=== PATIENT | female | born 1950 | race Caucasian/White ===

== ENCOUNTER 2016-08-08 20:09 | Emergency (ER) | payer BC ==
[~2016-08-08] VITALS: Ht 175.3 cm; Wt 98.0 kg
[~2016-08-08 20:09] MED LIST: CARVEDILOL6.25 MG PO; COZAAR 50 MG TA50 M2 PO; DOXYCYCLINE 10100 MG PO; GLUCOPHAGE1000 MG PO; GLYBURIDE 5 MG T5 MG PO; HYDROCODONE-AP1 EAC6 PO; IBUPROFEN 600600 M1 PO; LISINOPRIL5 MG PO; LORTAB 5 MG/5001 TA1 PO; METFORMIN HCL500 MG PO; MINIPRIN81 MG PO; NOHOMEMEDICATIONS; NORCO 5-325 TA1 EACH PO; PREDNISONE50 MG PO; PROAIR HFA8.5 GM IH; SILVADENE20 GM TP; TYLENOL325 MG PO; ZOCOR20 MG PO
[2016-08-08 21:32] LABS: ABSOLUTE NEUTROPHILS 3.8 thou/uL (1.4-8.2); BASOPHILS 0.7 % (0.0-2.0); EOSINOPHILS 0.7 % (0.0-3.0); HEMOGLOBIN 13.2 gm/dL (12.0-15.0); LYMPHOCYTES 21.5 % (24.0-44.0); MCH 32.3 pg (26.0-34.0); MCHC 35.7 g/dL (28.0-37.0); MCV 90.5 fL (80.0-100.0); MONOCYTES 9.7 % (1.0-8.0); PLATELET COUNT 156 thou/uL (150-400); POLYS 67.4 % (36.0-66.0); RBC 4.09 mil/uL (4.20-5.00); RDW 13.1 % (10.5-14.5); WBC 5.6 thou/uL (4.0-11.0)
[2016-08-08 21:34] LABS: MANUAL DIFF NO
[2016-08-08 21:40] LABS: CALCIUM 8.3 mg/dL (8.5-10.1); CREATININE 0.8 mg/dL (0.6-1.0)
[2016-08-08 21:46] LABS: ALBUMIN 3.2 g/dL (3.4-5.0); TOTAL PROTEIN 6.7 g/dL (6.4-8.2)
[2016-08-08 23:38] VITALS: BP 124/66
== END 2016-08-08 23:40 | disposition home or self-care (01) ==
LOC: ER 20:09
PROVIDERS: Emergency Medicine
DX: R19.7 Diarrhea, unspecified (principal); R10.32 Left lower quadrant pain; E11.9 Type 2 diabetes mellitus without complications; E78.00 Pure hypercholesterolemia, unspecified; Z90.710 Acquired absence of both cervix and uterus; Z90.722 Acquired absence of ovaries, bilateral; Z90.89 Acquired absence of other organs; I25.2 Old myocardial infarction; G47.30 Sleep apnea, unspecified; I10 Essential (primary) hypertension; I42.9 Cardiomyopathy, unspecified; Z88.1 Allergy status to other antibiotic agents; Z88.5 Allergy status to narcotic agent

== ENCOUNTER → 2016-09-02 | Outpatient (CLI) | payer OTHER | LOC: LABMALL 08:15 | DX: R19.7 Diarrhea, unspecified (principal) ==

== ENCOUNTER → 2016-09-17 | Outpatient (CLI) | payer OTHER | LOC: LABMALL 10:45 | DX: J02.9 Acute pharyngitis, unspecified (principal) ==

== ENCOUNTER 2017-06-21 07:31 | Inpatient (IN) | payer OTHER ==
[~2017-06-21] VITALS: Ht 175.3 cm; Wt 99.3 kg
[2017-06-21 07:37] VITALS: BP 211/95
[2017-06-21 08:01] LABS: URINE BILIRUBIN NEGATIVE (Negative); URINE BLOOD TRACE (Negative); URINE CLARITY CLOUDY; URINE COLOR YELLOW; URINE GLUCOSE-RANDOM* 3+ (Negative); URINE KETONES NEGATIVE (Negative); URINE PROTEIN (DIPSTICK) TRACE (Negative); URINE SPECIFIC GRAVITY 1.015 (1.005-1.035); URINE UROBILINOGEN 0.2 E.U./dl (0.2-1.0)
[2017-06-21 08:02] LABS: URINE LEUKOCYTES-REFLEX TRACE (Negative); URINE NITRITE-REFLEX POSITIVE (Negative)
[2017-06-21 08:12] LABS: ABSOLUTE NEUTROPHILS 4.5 thou/uL (1.4-8.2); BASOPHILS 1.1 % (0.0-2.0); EOSINOPHILS 1.5 % (0.0-3.0); HEMATOCRIT 41.2 % (37.0-47.0); HEMOGLOBIN 14.4 gm/dL (12.0-15.0); LYMPHOCYTES 21.3 % (24.0-44.0); MCH 32.4 pg (26.0-34.0); MCV 92.6 fL (80.0-100.0); MONOCYTES 7.6 % (1.0-8.0); PLATELET COUNT 176 thou/uL (150-400); POLYS 68.5 % (36.0-66.0); RBC 4.45 mil/uL (4.20-5.00); RDW 13.1 % (10.5-14.5); WBC 6.6 thou/uL (4.0-11.0)
[2017-06-21 08:15] LABS: CALCIUM 9.6 mg/dL (8.5-10.1); POTASSIUM 4.6 mmol/L (3.5-5.1)
[2017-06-21 08:36] LABS: BACTERIA-REFLEX >30 Many /HPF (None Seen); CASTS None Seen /LPF (None Seen); CRYSTALS None Seen /LPF (None Seen); SQUAMOUS 4-10 Moderate /LPF (0-3); URINE WBC-REFLEX >25 Many /HPF (0-5)
[2017-06-21 08:37] LABS: URINE RBC 0-2 Rare /HPF (0-2)
[2017-06-21 12:07] VITALS: BP 136/63
[2017-06-21 13:02] VITALS: BP 134/66
[2017-06-21 13:15] VITALS: BP 194/93
[2017-06-21 15:45] VITALS: BP 159/79
[2017-06-21 20:30] VITALS: BP 125/68
[2017-06-22 00:18] VITALS: BP 128/69
[2017-06-22 03:10] LABS: GLYCOHEMOGLOBIN (HGB A1C) 9.5 % (4.8-5.6)
[2017-06-22 03:16] VITALS: BP 141/61
[2017-06-22 04:29] LABS: CALCIUM 8.5 mg/dL (8.5-10.1); CREATININE 1.1 mg/dL (0.6-1.0); POTASSIUM 4.2 mmol/L (3.5-5.1)
[2017-06-22 05:26] LABS: HEMATOCRIT 35.7 % (37.0-47.0); MCH 32.3 pg (26.0-34.0); MCHC 34.6 g/dL (28.0-37.0); MCV 93.3 fL (80.0-100.0); RBC 3.83 mil/uL (4.20-5.00); RDW 13.3 % (10.5-14.5); WBC 4.8 thou/uL (4.0-11.0)
[2017-06-22 05:32] LABS: HEMOGLOBIN 12.4 gm/dL (12.0-15.0)
[2017-06-22 08:29] VITALS: BP 154/78
[2017-06-22] MEDS ORDERED: ACETAMINOPHEN325 M1 PO (12:15)
[2017-06-22] MEDS ORDERED: GLIMEPIRIDE1 MG PO (12:15)
[2017-06-22] MEDS ORDERED: HYDROCODONE-AP1 EAC6 PO (12:15)
[2017-06-22] MEDS ORDERED: LISINOPRIL10 MG PO (12:27)
[2017-06-22] MEDS ORDERED: BACTRIM DS TAB1 EACH PO (12:38)
[2017-06-22 13:28] VITALS: BP 154/78
[2017-07-25] MEDS ORDERED: KEFLEX500 M1 PO (09:41)
[2017-07-25] MEDS ORDERED: VANCOMYCIN125 MG/2.1 PO (09:41)
== END 2017-06-22 14:50 | disposition home or self-care (01) | DRG 552 ==
LOC: ER 07:31 → 4S 10:10 → EROBS 10:10 → 4S 13:20
PROVIDERS: Emergency Medicine; Hospitalist
DX: M46.1 Sacroiliitis, not elsewhere classified (principal); N39.0 Urinary tract infection, site not specified; I42.9 Cardiomyopathy, unspecified; E11.65 Type 2 diabetes mellitus with hyperglycemia; I10 Essential (primary) hypertension; E66.9 Obesity, unspecified; G89.29 Other chronic pain; E78.00 Pure hypercholesterolemia, unspecified; M54.9 Dorsalgia, unspecified; Z91.14 Patient's other noncompliance with medication regimen; Z88.6 Allergy status to analgesic agent; Z88.1 Allergy status to other antibiotic agents; Z88.8 Allergy status to other drugs, medicaments and biological substances; Z90.710 Acquired absence of both cervix and uterus; Z68.32 Body mass index [BMI] 32.0-32.9, adult; Z90.721 Acquired absence of ovaries, unilateral; I25.2 Old myocardial infarction
CPT/HCPCS: 10100

== ENCOUNTER 2017-06-28 05:48 | Emergency (ER) | payer OTHER ==
[~2017-06-28] VITALS: Ht 175.3 cm; Wt 99.8 kg
[~2017-06-28 05:48] MED LIST changes: +ACETAMINOPHEN325 M1 PO; +BACTRIM DS TAB1 EACH PO; +GLIMEPIRIDE1 MG PO; +LISINOPRIL10 MG PO
[2017-06-28 06:16] LABS: ABSOLUTE NEUTROPHILS 3.7 thou/uL (1.4-8.2); BASOPHILS 0.8 % (0.0-2.0); CALCIUM 8.7 mg/dL (8.5-10.1); CREATININE 0.8 mg/dL (0.6-1.0); EOSINOPHILS 1.2 % (0.0-3.0); HEMATOCRIT 36.6 % (37.0-47.0); LYMPHOCYTES 25.2 % (24.0-44.0); MCH 32.3 pg (26.0-34.0); MCHC 35.4 g/dL (28.0-37.0); MCV 91.4 fL (80.0-100.0); MONOCYTES 9.2 % (1.0-8.0); PLATELET COUNT 165 thou/uL (150-400); POLYS 63.6 % (36.0-66.0); POTASSIUM 4.6 mmol/L (3.5-5.1); RBC 4.01 mil/uL (4.20-5.00); RDW 13.2 % (10.5-14.5); WBC 5.8 thou/uL (4.0-11.0)
[2017-06-28 06:21] LABS: ALBUMIN 3.2 g/dL (3.4-5.0); DIRECT BILIRUBIN 0.1 mg/dL (<0.1-0.3); TOTAL BILIRUBIN 0.5 mg/dL (<0.1-1.0); TOTAL PROTEIN 6.9 g/dL (6.4-8.2)
[2017-06-28] MEDS ORDERED: VANCOMYCIN HCL125 MG PO (08:40)
[2017-06-28 09:02] VITALS: BP 164/72
[2017-07-25] MEDS ORDERED: KEFLEX500 M1 PO (09:41)
[2017-07-25] MEDS ORDERED: VANCOMYCIN125 MG/2.1 PO (09:41)
== END 2017-06-28 09:26 | disposition home or self-care (01) ==
LOC: ER 05:48
PROVIDERS: Emergency Medicine
DX: R19.7 Diarrhea, unspecified (principal); R10.9 Unspecified abdominal pain; E11.9 Type 2 diabetes mellitus without complications; E78.00 Pure hypercholesterolemia, unspecified; I10 Essential (primary) hypertension; G47.30 Sleep apnea, unspecified; Z98.890 Other specified postprocedural states; Z90.710 Acquired absence of both cervix and uterus; Z90.49 Acquired absence of other specified parts of digestive tract; Z88.1 Allergy status to other antibiotic agents; Z88.6 Allergy status to analgesic agent; Z88.8 Allergy status to other drugs, medicaments and biological substances

== ENCOUNTER 2017-09-27 09:30 | Emergency (ER) | payer OTHER ==
[~2017-09-27] VITALS: Ht 175.3 cm; Wt 97.1 kg
--- NOTE | ~2017-09-27 | EKG ---
[address] [place] [address] ELECTROCARDIOGRAM REPORT Name: STONE DENNIS Room #: REG [facility]#: [id number] Admission: 09/27/17 Attend Phys: Discharge: Date of : 52 Report #: [id number] THIS REPORT FOR: //name// [facility] ED Test Date: 2017-09-27 Test Time: 09:42:37 Pat Name: STONE DENNIS Department: Room: Gender: F Still Operator: Bernadine HAMPTON RN : 1950 Requested By: Pablo Ocampo Order Number: [id number] MD: Michelet Billings Measurements Intervals [place] Rate: 65 P: 15 [place]: 150 QRS: -35 QRSD: 112 T: 45 QT: 438 QTc: 456 Interpretive Statements Sinus rhythm Borderline IVCD Compared to ECG 09/19/2013 14:25:59 Poor R-wave progression no longer present Left-axis deviation no longer present Electronically Signed On 09-27-2017 10:55:29 CDT by Michelet Billings [email or web address] <ELECTRONICALLY SIGNED> By: Michelet Billings MD, [facility] 09/27/17 1055 1 1 Michelet Billings MD, [facility] /EPI
[~2017-09-27 09:30] MED LIST changes: +KEFLEX500 M1 PO; +VANCOMYCIN HCL125 MG PO; +VANCOMYCIN125 MG/2.1 PO
[2017-09-27 10:02] LABS: ABSOLUTE NEUTROPHILS 3.6 thou/uL (1.4-8.2); BASOPHILS 0.9 % (0.0-2.0); MCH 31.8 pg (26.0-34.0)
[2017-09-27 10:04] LABS: LYMPHOCYTES 21.7 % (24.0-44.0); MCHC 34.9 g/dL (28.0-37.0); MCV 90.9 fL (80.0-100.0); MONOCYTES 8.6 % (1.0-8.0); PLATELET COUNT 185 thou/uL (150-400); POLYS 66.8 % (36.0-66.0); RDW 12.9 % (10.5-14.5); WBC 5.3 thou/uL (4.0-11.0)
[2017-09-27 10:05] LABS: ANION GAP 8 mmol/L (7-16); BUN 19 mg/dL (7-18); CALCIUM 9.9 mg/dL (8.5-10.1); CHLORIDE 98 mmol/L (98-107); CO2 25 mmol/L (21-32); GLUCOSE 409 mg/dL (74-106); POTASSIUM 4.3 mmol/L (3.5-5.1); SODIUM 131 mmol/L (136-145)
[2017-09-27] MEDS ORDERED: CYMBALTA30 MG PO (10:06)
[2017-09-27] MEDS ORDERED: BENTYL 10 MG CA10 M1 PO (10:06)
[2017-09-27] MEDS ORDERED: TRAZODONE HCL50 MG PO (10:07)
[2017-09-27 10:14] LABS: ALBUMIN 3.6 g/dL (3.4-5.0); SGOT 23 U/L (15-37); SGPT 30 U/L (30-65); TOTAL BILIRUBIN 0.9 mg/dL (<0.1-1.0); TOTAL PROTEIN 7.6 g/dL (6.4-8.2); TROPONIN-I < 0.04 ng/mL (<0.06)
[2017-09-27 11:00] LABS: URINE BILIRUBIN NEGATIVE (Negative); URINE BLOOD TRACE (Negative); URINE CLARITY CLOUDY; URINE COLOR YELLOW; URINE GLUCOSE-RANDOM* 3+ (Negative); URINE KETONES NEGATIVE (Negative); URINE LEUKOCYTES-REFLEX NEGATIVE (Negative); URINE PROTEIN (DIPSTICK) NEGATIVE (Negative); URINE UROBILINOGEN 0.2 E.U./dl (0.2-1.0)
[2017-09-27 11:01] LABS: URINE NITRITE-REFLEX POSITIVE (Negative)
[2017-09-27 11:09] LABS: SQUAMOUS 0-3 Few /LPF (0-3); URINE RBC 0-2 Rare /HPF (0-2); URINE WBC-REFLEX 6-15 Few /HPF (0-5)
[2017-09-27 11:10] LABS: BACTERIA-REFLEX >30 Many /HPF (None Seen); CASTS None Seen /LPF (None Seen); CRYSTALS None Seen /LPF (None Seen)
[2017-09-27] MEDS ORDERED: FLAGYL 250 MG250 MG PO (11:48)
[2017-09-27] MEDS ORDERED: CEFDINIR300 MG PO (11:48)
[2017-09-27] MEDS ORDERED: XIFAXAN 200 MG200 MG PO (11:52)
[2017-09-27 12:02] VITALS: BP 173/73
== END 2017-09-27 12:02 | disposition home or self-care (01) ==
LOC: ER 09:30
PROVIDERS: Physician Assistant
DX: N39.0 Urinary tract infection, site not specified (principal); E11.65 Type 2 diabetes mellitus with hyperglycemia; R19.7 Diarrhea, unspecified; E78.00 Pure hypercholesterolemia, unspecified; I25.2 Old myocardial infarction; I42.9 Cardiomyopathy, unspecified; I10 Essential (primary) hypertension; Z90.89 Acquired absence of other organs; Z88.1 Allergy status to other antibiotic agents; Z88.5 Allergy status to narcotic agent; Z88.6 Allergy status to analgesic agent

== ENCOUNTER 2017-10-17 17:38 | Emergency (ER) | payer OTHER ==
[~2017-10-17] VITALS: Ht 175.3 cm; Wt 94.8 kg
--- NOTE | ~2017-10-17 | EKG ---
[address] [address] [facility] [employer] [place] [address] ELECTROCARDIOGRAM REPORT Name: STONE DENNIS Room #: [facility] [id number] Admission: 10/17/17 Attend Phys: Discharge: 10/17/17 Date of : 52 Report #: [id number] THIS REPORT FOR: //name// [facility] ED Test Date: 2017-10-17 Test Time: 17:45:24 Pat Name: STONE DENNIS Department: Room: Gender: F Cooker Process Cheese: : 1950 Requested By: Ellen Lawson Order Number: [id number] MD: Michelet Billings Measurements Intervals [place] Rate: 75 P: 5 [place]: 147 QRS: -47 QRSD: 107 T: 43 QT: 412 QTc: 461 Interpretive Statements Sinus rhythm Left axis deviation Abnormal R-wave progression, late transition Compared to ECG 09/27/2017 09:42:37 No significant changes Electronically Signed On 10-18-2017 17:04:14 CDT by Michelet Billings [email or web address] <ELECTRONICALLY SIGNED> By: Michelet Billings MD, [facility] 10/18/17 1704 1745 174 Michelet Billings MD, [facility] /EPI
[~2017-10-17 17:38] MED LIST changes: +BENTYL 10 MG CA10 M1 PO; +CEFDINIR300 MG PO; +CYMBALTA30 MG PO; +FLAGYL 250 MG250 MG PO; +TRAZODONE HCL50 MG PO; +XIFAXAN 200 MG200 MG PO
[2017-10-17 18:00] LABS: ABSOLUTE NEUTROPHILS 3.2 thou/uL (1.4-8.2); BASOPHILS 0.8 % (0.0-2.0); EOSINOPHILS 2.1 % (0.0-3.0); HEMATOCRIT 37.5 % (37.0-47.0); HEMOGLOBIN 13.7 gm/dL (12.0-15.0); LYMPHOCYTES 26.6 % (24.0-44.0); MCH 32.7 pg (26.0-34.0); MCHC 36.6 g/dL (28.0-37.0); MCV 89.2 fL (80.0-100.0); MONOCYTES 6.5 % (1.0-8.0); PLATELET COUNT 176 thou/uL (150-400); RBC 4.21 mil/uL (4.20-5.00); RDW 13.2 % (10.5-14.5)
[2017-10-17 18:14] LABS: ANION GAP 5 mmol/L (7-16); BUN 19 mg/dL (7-18); CALCIUM 9.5 mg/dL (8.5-10.1); CHLORIDE 99 mmol/L (98-107); CO2 28 mmol/L (21-32); GLUCOSE 431 mg/dL (74-106); POTASSIUM 4.2 mmol/L (3.5-5.1); SODIUM 132 mmol/L (136-145)
[2017-10-17 18:22] LABS: TROPONIN-I <0.06 ng/mL (<0.06)
[2017-10-17 18:39] LABS: ANISOCYTOSIS 1+
[2017-10-17 19:32] LABS: ALBUMIN 3.4 g/dL (3.4-5.0); DIRECT BILIRUBIN 0.2 mg/dL (<0.1-0.3); MAGNESIUM 1.9 mg/dL (1.8-2.4); TOTAL BILIRUBIN 0.7 mg/dL (<0.1-1.0); TOTAL PROTEIN 7.3 g/dL (6.4-8.2)
[2017-10-17 19:35] LABS: APTT 24.2 Seconds (24.5-32.8); PROTIME 9.8 Seconds (9.3-11.4)
[2017-10-17 19:37] LABS: URINE BILIRUBIN NEGATIVE (Negative); URINE BLOOD NEGATIVE (Negative); URINE CLARITY CLEAR; URINE COLOR YELLOW; URINE GLUCOSE-RANDOM* 3+ (Negative); URINE KETONES NEGATIVE (Negative); URINE LEUKOCYTES-REFLEX NEGATIVE (Negative); URINE NITRITE-REFLEX NEGATIVE (Negative); URINE PROTEIN (DIPSTICK) NEGATIVE (Negative); URINE UROBILINOGEN 0.2 E.U./dl (0.2-1.0)
[2017-10-17] MEDS ORDERED: ANTIVERT25 MG PO (20:01)
[2017-10-17 20:46] VITALS: BP 180/67
== END 2017-10-17 20:00 | disposition home or self-care (01) ==
LOC: ER 17:38
PROVIDERS: Emergency Medicine
DX: E11.9 Type 2 diabetes mellitus without complications (principal); R23.3 Spontaneous ecchymoses; H93.13 Tinnitus, bilateral; R19.7 Diarrhea, unspecified; E78.00 Pure hypercholesterolemia, unspecified; I25.2 Old myocardial infarction; I10 Essential (primary) hypertension; I42.9 Cardiomyopathy, unspecified; Z90.89 Acquired absence of other organs; Z90.710 Acquired absence of both cervix and uterus; Z90.49 Acquired absence of other specified parts of digestive tract; Z88.1 Allergy status to other antibiotic agents; Z88.6 Allergy status to analgesic agent; Z88.5 Allergy status to narcotic agent

== ENCOUNTER → 2017-11-05 | Outpatient (CLI) | payer OTHER ==
[~2017-11-05] MED LIST changes: +ANTIVERT25 MG PO
== END ==
LOC: NUC 10:29
DX: N91.2 Amenorrhea, unspecified (principal); Z78.0 Asymptomatic menopausal state; Z87.39 Personal history of other diseases of the musculoskeletal system and connective tissue

== ENCOUNTER 2018-03-14 10:09 | Emergency (ER) | payer OTHER ==
[~2018-03-14] VITALS: Ht 172.7 cm; Wt 99.8 kg
--- NOTE | ~2018-03-14 | EKG ---
[address] [place] [address] ELECTROCARDIOGRAM REPORT Name: STONE DENNIS [facility] [id number] Admission: 03/14/18 Attend Phys: Discharge: 03/14/18 Date of : 52 Report #: [id number] THIS REPORT FOR: //name// [facility] ED Test Date: 2018-03-14 Test Time: 10:30:41 Pat Name: STONE DENNIS Department: Room: Gender: F Hospice Bereavement Coordinator: LYN : 1950 Requested By: Pablo Ocampo Order Number: [id number] MD: Michelet Billings Measurements Intervals [place] Rate: 67 P: 37 [place]: 154 QRS: -50 QRSD: 108 T: 74 QT: 438 QTc: 463 Interpretive Statements Sinus rhythm Abnormal R-wave progression, late transition Leftward axis Compared to ECG 10/17/2017 17:45:24 No significant change was found Electronically Signed On 03-15-2018 8:44:12 DENTAL TECHNICIAN APPRENTICE by Michelet Billings [email or web address] <ELECTRONICALLY SIGNED> By: Michelet Billings MD, [facility] 03/15/18 0844 1030 1030 Michelet Billings MD, [facility] /EPI
[2018-03-14] MEDS ORDERED: OZEMPIC0.25 MG/0. SUBQ (10:14)
[2018-03-14] MEDS ORDERED: BACTRIM DS TAB1 EACH PO (10:16)
[2018-03-14 10:38] LABS: ABSOLUTE NEUTROPHILS 3.4 thou/uL (1.4-8.2); BASOPHILS 0.8 % (0.0-2.0); EOSINOPHILS 1.7 % (0.0-3.0); HEMATOCRIT 38.2 % (37.0-47.0); HEMOGLOBIN 13.7 gm/dL (12.0-15.0); LYMPHOCYTES 23.3 % (24.0-44.0); MCH 32.8 pg (26.0-34.0); MCHC 35.9 g/dL (28.0-37.0); MCV 91.3 fL (80.0-100.0); MONOCYTES 9.4 % (1.0-8.0); PLATELET COUNT 142 thou/uL (150-400); POLYS 64.8 % (36.0-66.0); RBC 4.19 mil/uL (4.20-5.00); RDW 13.2 % (10.5-14.5); WBC 5.3 thou/uL (4.0-11.0)
[2018-03-14 10:53] LABS: ANION GAP 7 mmol/L (7-16); BUN 23 mg/dL (7-18); CHLORIDE 97 mmol/L (98-107); CO2 26 mmol/L (21-32); CREATININE 1.1 mg/dL (0.6-1.0); GLUCOSE 350 mg/dL (74-106); POTASSIUM 4.5 mmol/L (3.5-5.1); SODIUM 130 mmol/L (136-145)
[2018-03-14 11:02] LABS: ALBUMIN 3.4 g/dL (3.4-5.0); LIPASE 265 U/L (73-393); SGOT 31 U/L (15-37); SGPT 37 U/L (30-65); TOTAL BILIRUBIN 0.7 mg/dL (<0.1-1.0); TOTAL PROTEIN 7.3 g/dL (6.4-8.2); TROPONIN-I <0.06 ng/mL (<0.06)
[2018-03-14 11:49] LABS: URINE BILIRUBIN NEGATIVE (Negative); URINE BLOOD NEGATIVE (Negative); URINE CLARITY CLEAR; URINE COLOR YELLOW; URINE GLUCOSE-RANDOM* 3+ (Negative); URINE KETONES NEGATIVE (Negative); URINE LEUKOCYTES-REFLEX NEGATIVE (Negative); URINE PROTEIN (DIPSTICK) NEGATIVE (Negative); URINE UROBILINOGEN 0.2 E.U./dl (0.2-1.0)
[2018-03-14 11:57] LABS: URINE NITRITE-REFLEX POSITIVE (Negative)
[2018-03-14 12:34] LABS: BACTERIA-REFLEX >30 Many /HPF (None Seen); CASTS None Seen /LPF (None Seen); CRYSTALS None Seen /LPF (None Seen); SQUAMOUS 0-3 Few /LPF (0-3); URINE RBC None Seen /HPF (0-2)
[2018-03-14 12:35] LABS: URINE WBC-REFLEX 0-5 Rare /HPF (0-5)
[2018-03-14] MEDS ORDERED: ZOFRAN ODT4 MG PO (12:40)
[2018-03-14 13:18] VITALS: BP 147/89
== END 2018-03-14 13:21 | disposition home or self-care (01) ==
LOC: ER 10:09
PROVIDERS: Physician Assistant
DX: R11.2 Nausea with vomiting, unspecified (principal); T38.3X5A Adverse effect of insulin and oral hypoglycemic [antidiabetic] drugs, initial encounter; R10.13 Epigastric pain; R53.1 Weakness; E11.9 Type 2 diabetes mellitus without complications; E78.00 Pure hypercholesterolemia, unspecified; G47.30 Sleep apnea, unspecified; I10 Essential (primary) hypertension; I42.9 Cardiomyopathy, unspecified; Z90.89 Acquired absence of other organs; Z88.1 Allergy status to other antibiotic agents; Z90.710 Acquired absence of both cervix and uterus; Z90.49 Acquired absence of other specified parts of digestive tract; Z88.6 Allergy status to analgesic agent; Z88.5 Allergy status to narcotic agent; Y92.89 Other specified places as the place of occurrence of the external cause

== ENCOUNTER 2018-05-05 14:16 | Emergency (ER) | payer OTHER ==
[~2018-05-05] VITALS: Ht 172.7 cm; Wt 100.7 kg
[~2018-05-05 14:16] MED LIST changes: +OZEMPIC0.25 MG/0. SUBQ; +ZOFRAN ODT4 MG PO
[2018-05-05 14:47] LABS: ABSOLUTE NEUTROPHILS 2.9 thou/uL (1.4-8.2); BASOPHILS 0.9 % (0.0-2.0); EOSINOPHILS 1.6 % (0.0-3.0); HEMATOCRIT 39.3 % (37.0-47.0); HEMOGLOBIN 13.8 gm/dL (12.0-15.0); MCH 32.4 pg (26.0-34.0); MCHC 35.2 g/dL (28.0-37.0); MCV 92.3 fL (80.0-100.0); MONOCYTES 6.5 % (1.0-8.0); PLATELET COUNT 167 thou/uL (150-400); RBC 4.26 mil/uL (4.20-5.00); RDW 13.2 % (10.5-14.5); WBC 4.8 thou/uL (4.0-11.0)
[2018-05-05 14:55] LABS: CREATININE 0.9 mg/dL (0.6-1.0)
[2018-05-05 15:00] LABS: ALBUMIN 3.7 g/dL (3.4-5.0); TOTAL PROTEIN 7.7 g/dL (6.4-8.2)
[2018-05-05] MEDS ORDERED: LEXAPRO 10 MG T10 M2 PO (15:22)
[2018-05-05] MEDS ORDERED: PRILOSEC OTC20 MG PO (15:23)
[2018-05-05] MEDS ORDERED: NEURONTIN 300300 M1 PO (15:23)
[2018-05-05] MEDS ORDERED: ZOFRAN ODT4 MG PO (16:25)
[2018-05-05 16:27] VITALS: BP 123/100
== END 2018-05-05 16:28 | disposition home or self-care (01) ==
LOC: ER 14:16
PROVIDERS: Emergency Medicine
DX: R19.7 Diarrhea, unspecified (principal); I10 Essential (primary) hypertension; G47.30 Sleep apnea, unspecified; I42.9 Cardiomyopathy, unspecified; E11.9 Type 2 diabetes mellitus without complications; E78.00 Pure hypercholesterolemia, unspecified; Z88.1 Allergy status to other antibiotic agents; Z88.6 Allergy status to analgesic agent; Z88.5 Allergy status to narcotic agent; Z90.710 Acquired absence of both cervix and uterus; Z90.49 Acquired absence of other specified parts of digestive tract; Z90.721 Acquired absence of ovaries, unilateral; Z90.89 Acquired absence of other organs

== ENCOUNTER 2019-01-02 06:48 | Emergency (ER) | payer OTHER ==
[~2019-01-02] VITALS: Ht 172.7 cm; Wt 103.9 kg
[~2019-01-02 06:48] MED LIST changes: +LEXAPRO 10 MG T10 M2 PO; +NEURONTIN 300300 M1 PO; +PRILOSEC OTC20 MG PO
[2019-01-02 07:32] LABS: ABSOLUTE NEUTROPHILS 2.9 thou/uL (1.4-8.2); BASOPHILS 1.4 % (0.0-2.0); EOSINOPHILS 1.9 % (0.0-3.0); HEMATOCRIT 36.6 % (37.0-47.0); HEMOGLOBIN 12.7 gm/dL (12.0-15.0); LYMPHOCYTES 28.4 % (24.0-44.0); MCH 32.7 pg (26.0-34.0); MCHC 34.8 g/dL (28.0-37.0); MCV 93.8 fL (80.0-100.0); MONOCYTES 8.6 % (1.0-8.0); PLATELET COUNT 167 thou/uL (150-400); POLYS 59.7 % (36.0-66.0); RDW 13.4 % (10.5-14.5); WBC 4.8 thou/uL (4.0-11.0)
[2019-01-02 07:47] LABS: ANION GAP 9 mmol/L (7-16); BUN 21 mg/dL (7-18); CALCIUM 8.8 mg/dL (8.5-10.1); CHLORIDE 102 mmol/L (98-107); CO2 25 mmol/L (21-32); GLUCOSE 308 mg/dL (74-106); POTASSIUM 4.6 mmol/L (3.5-5.1); SODIUM 136 mmol/L (136-145)
[2019-01-02 07:57] LABS: ALBUMIN 3.3 g/dL (3.4-5.0); LIPASE 102 U/L (73-393); SGOT 29 U/L (15-37); SGPT 30 U/L (30-65); TOTAL BILIRUBIN 0.6 mg/dL (<0.1-1.0); TOTAL PROTEIN 7.1 g/dL (6.4-8.2); TROPONIN-I <0.06 ng/mL (<0.06)
--- NOTE | 2019-01-02 08:02 | EKG ---
[address] [place] [address] ELECTROCARDIOGRAM REPORT Name: JEANNIESTONE ABRAHAM [facility] [id number] ������������������ Admission: 01/02/19 ������������������ Attend Phys: Discharge: ������������������ Date of : 52 Report #: [id number] ����������������������������������������������������������������� [id number] THIS REPORT FOR: //name// [facility] ED Test Date: 2019-01-02 Test Time: 07:01:57 Pat Name: STONE DENNIS Department: Room: Gender: F Firing Pin Gauger: BAIRON : 1950 Requested By: Andi Causey Order Number: [id number] MD: Willian Jett Measurements Intervals [place] Rate: 67 P: 16 [place]: 164 QRS: -36 QRSD: 110 T: 67 QT: 436 QTc: 461 Interpretive Statements Sinus rhythm Left axis deviation Compared to ECG 03/14/2018 10:30:41 No significant changes Electronically Signed On 01-02-2019 8:02:36 CDT by Willian Jett [email or web address] ��������������������������������������������� <ELECTRONICALLY SIGNED> ���������������������������������������� By: Willian Jett MD ��������������������������������������������� 01/02/19801 07 07 Willian Jett MD /YVONNE
[2019-01-02] MEDS ORDERED: ONDANSETRON ODT8 MG PO (08:20)
[2019-01-02 08:21] VITALS: BP 174/79
[2019-01-02] MEDS ORDERED: PRILOSEC OTC20 MG PO (08:21)
== END 2019-01-02 08:21 | disposition home or self-care (01) ==
LOC: ER 06:48
PROVIDERS: Emergency Medicine
DX: R19.7 Diarrhea, unspecified (principal); K21.9 Gastro-esophageal reflux disease without esophagitis; E11.9 Type 2 diabetes mellitus without complications; E78.00 Pure hypercholesterolemia, unspecified; I10 Essential (primary) hypertension; I42.9 Cardiomyopathy, unspecified; G47.30 Sleep apnea, unspecified; Z90.710 Acquired absence of both cervix and uterus; Z90.49 Acquired absence of other specified parts of digestive tract; Z90.722 Acquired absence of ovaries, bilateral; Z88.6 Allergy status to analgesic agent; Z88.1 Allergy status to other antibiotic agents

== ENCOUNTER → 2019-01-06 | Outpatient (CLI) | payer OTHER ==
[~2019-01-06] MED LIST changes: +ONDANSETRON ODT8 MG PO
== END ==
LOC: CAT 10:29
DX: M19.072 Primary osteoarthritis, left ankle and foot (principal); G89.29 Other chronic pain; Z79.899 Other long term (current) drug therapy; Z88.5 Allergy status to narcotic agent; Z88.1 Allergy status to other antibiotic agents

== ENCOUNTER → 2019-02-13 | Outpatient (CLI) | payer OTHER | LOC: MRI 06:20 | DX: M47.26 Other spondylosis with radiculopathy, lumbar region (principal); M85.68 Other cyst of bone, other site; M51.16 Intervertebral disc disorders with radiculopathy, lumbar region; M12.88 Other specific arthropathies, not elsewhere classified, other specified site; M51.27 Other intervertebral disc displacement, lumbosacral region; Z88.8 Allergy status to other drugs, medicaments and biological substances ==

== ENCOUNTER 2019-03-08 14:41 | Inpatient (IN) | payer OTHER ==
[~2019-03-08] VITALS: Ht 175.3 cm; Wt 99.8 kg
[2019-03-08 14:41] VITALS: BP 146/77
[2019-03-08] MEDS ORDERED: JARDIANCE10 MG PO (14:56)
[2019-03-08] MEDS ORDERED: LANTUSSOLASTAR (14:57)
[2019-03-08 15:33] LABS: ABSOLUTE NEUTROPHILS 3.9 thou/uL (1.4-8.2); BASOPHILS 0.4 % (0.0-2.0); EOSINOPHILS 0.6 % (0.0-3.0); HEMATOCRIT 39.1 % (37.0-47.0); HEMOGLOBIN 13.3 gm/dL (12.0-15.0); MCH 32.1 pg (26.0-34.0); MCV 94.4 fL (80.0-100.0); MONOCYTES 10.7 % (1.0-8.0); PLATELET COUNT 171 thou/uL (150-400); POLYS 64.3 % (36.0-66.0); RBC 4.14 mil/uL (4.20-5.00); RDW 13.4 % (10.5-14.5); WBC 6.1 thou/uL (4.0-11.0)
[2019-03-08 15:36] LABS: CALCIUM 9.2 mg/dL (8.5-10.1); CREATININE 1.3 mg/dL (0.6-1.0); POTASSIUM 3.9 mmol/L (3.5-5.1)
--- NOTE | 2019-03-08 16:50 | EKG ---
[address] [place] [address] ELECTROCARDIOGRAM REPORT Name: STONE DENNISNE [facility] [id number] Admission: 03/08/19 Attend Phys: Discharge: Date of : 52 Report #: [id number] THIS REPORT FOR: //name// [facility] ED Test Date: 2019-03-08 Test Time: 14:52:18 Pat Name: STONE DENNIS Department: Room: Gender: F Campground Cleaning Attendant: WG : 1950 Requested By: Roman Spears Order Number: [id number] MD: Willian Jett Measurements Intervals [place] Rate: 74 P: 19 [place]: 157 QRS: -49 QRSD: 107 T: 69 QT: 403 QTc: 448 Interpretive Statements Sinus rhythm LAD, consider left anterior fascicular block Abnormal R-wave progression, late transition Baseline wander in lead(s) V1 Compared to ECG 01/02/2019 07:01:57 Left-axis deviation no longer present Electronically Signed On 03-08-2019 16:49:55 PIERCING SPECIALIST by Willian Jett [email or web address] <ELECTRONICALLY SIGNED> By: Willian Jett MD 03/08/19 1649 145 145 Willian Jett MD /EPI
[2019-03-08 17:19] LABS: CHOLESTEROL 193 mg/dL (<200); HDL CHOLESTEROL 33 mg/dL (>40); LDL CHOLESTEROL 119 mg/dL (<100); SERUM ASSESSMENT Clear; TC:HDL 5.8 Ratio (Not establshd); TRIGLYCERIDE 205 mg/dL (<150); VLDL 41 mg/dL (<40)
[2019-03-08 17:55] VITALS: BP 138/53
[2019-03-08 18:18] VITALS: BP 128/51
[2019-03-08 18:50] VITALS: BP 151/67
[2019-03-08 19:36] VITALS: BP 150/70
--- NOTE | 2019-03-09 04:58 | NUR ---
Pt. rested quietly at intervals during the night when checked on during frequent rounds. She c/o pain to the right lower extremity and po pain med given (see emar) with some relief noted. She has been up to the bathroom with stand by assistance.
[2019-03-09 07:55] VITALS: BP 183/83
--- NOTE | 2019-03-09 12:00 | NUR ---
PT ADMITTED RELATED TO PAIN AND WEAKNESS IN RIGHT LEG. CM REVIEWED CHART AND SPOKE WITH CARE TEAM. CM MET WITH PT AT BEDSIDE THIS DAY. PT WORKS A [employer] HERE AT [employer]. PT INDICATED SHE RESIDES IN A HOUSE WITH HER GRANDSON WITH 2 STEPS TO ENTER AND NO STEPS SHE USES INSIDE. SHE INDICATED SHE USES A [employer] TO ASSIST WITH MOBILITY HERE AT WORK. PT INDICATED SHE HADN'T USE ANY DME AT HOME AND INDICATED NO HH HX. PT INDICATED THAT HER POSITION HAD BEEN CHANGED TO LOG PREPARER AND SHE EXPRESSED CONCERN ABOUT HOW SHE WAS GOING TO MANAGE. PT WAS AGREEABLE WITH [employer] BEING SENT TO [employer] ABD WAS RECEOTIVE TO THEM FOLLOWING UP WITH HER IF NOT ABLE TO SEE HER UPON DC. CM PUT [employer] CONTACT IN DC PAPERWORK. CARE TEAM INDICATED THAT PT IS MEDICALLY STABLE TO DC HOME ON ORAL ABX THIS DAY. NO OTHER CM INTERVENTION INDICATED. CASE CLOSED.
[2019-03-09 12:05] VITALS: BP 183/83
[2019-03-09] MEDS ORDERED: CIPRO500 M1 PO (14:42)
--- NOTE | 2019-03-09 14:47 | NUR ---
Consult [id number] completed. This spine supervisor met with the patient. We did life review and discussed her 38 years working with [facility] [employer]. We discussed some of her life's stressors and challenges. We discussed dealing with the younger people of today. We concluded in prayer.
[2019-03-09 14:51] VITALS: BP 183/83
--- NOTE | 2019-03-09 16:18 | NUR ---
ASSESSMENTS AND INTERVENTIONS DOCCUMENTED. PATIENT CRYING RELATED TO HOME AND FAMILY ISSUES. PATIENT COMFORTED BY RN. PATIENT UPDATED ON POC AND DISCHARGE. PERSCRIPTION FOR CIPRO GIVEN BUT PATIENT HAS ALLERGY SO DR. GRUBER WILL ORDER A PERSCRIPTION FOR SUEDE CLEANER ON 03/09/19. PATIENT AWARE. PATIENT DISCHARGED HOME.
--- NOTE | 2019-03-10 09:12 | HC ---
[facility] [place] [address] CONSULTATION Name: STONE DENNIS Room #: 454-P [facility].R.#: [id number] Admission: 03/08/19 Attend Phys: Khloe Garcia Discharge: 03/09/19 Date of : 52 Report #: [id number] THIS REPORT FOR: //name// CC: Jenny Villafuerte Rosenberg DATE OF SERVICE: 03/08/2019 ENDOCRINE CONSULTATION NOTE CONSULTING PHYSICIAN: Dr. Garcia. REASON FOR CONSULTATION: Uncontrolled type 2 diabetes mellitus. HISTORY OF PRESENT ILLNESS: This is a 68-year-old female patient whose medical background is significant for multiple medical issues, including type 2 diabetes mellitus, hypertension, obesity, hyperlipidemia, who presented here yesterday with complaints of rapidly progressive right lower extremity pain, redness and swelling. She was admitted for further care and monitoring under the notion of cellulitis. The patient has been a type 2 diabetic for many years. I saw her in my clinic as a new patient over 3 months ago, at which time she indicated that although she was supposed to be on a regimen consisting of Tresiba, Jardiance, Januvia, glimepiride in addition to lipid-lowering therapy, that she had decided to completely stop all of these medicines as she had gotten sick and tired of feeling tired. At that time, the patient was dealing with severe hyperglycemia and she was counseled on the fact that she needs to adhere to her prescribed diabetic regimen. However, the patient has gone missing to follow up since then. When I interviewed her today, she indicated that she had remained without active antidiabetic therapy until a few weeks ago when she had visited with her nurse practitioner, Jenny Hawkins, who insisted on starting insulin and was actually placed on Lantus insulin taken as 15 units q.a.m. and 10 units q.p.m. in addition to Jardiance 10 mg daily. Despite this initiation, the patient describes blood glucose values that are rather consistently in the 300-400 mg/dL range. With this, she had felt increasingly fatigued, tired and describes generalized aches and malaise. The patient has chronic kidney disease and believes that she has diabetic retinopathy. She has peripheral neuropathy. The patient has been battling issues of depression, but has not been on active therapy under the notion that Lexapro had caused her tremors in the past and she elected to stay off all antidepressant treatments. REVIEW OF SYSTEMS: CONSTITUTIONAL: Fatigue, tiredness, fever, chills. [address] [address] CONSULTATION Name: STONE DENNIS Room #: 454-P [facility] IN M.R.#: [id number] Admission: 03/08/19 Attend Phys: Khloe Garcia Discharge: 03/09/19 Date of : 52 Report #: [id number] HEENT: Negative for sinus pain, sore throat, ear drainage. PULMONARY: Occasional shortness of breath, cough, but no hemoptysis. CARDIAC: Occasional palpitations, leg swelling. No chest pain. GASTROINTESTINAL: Abdominal distention, abdominal discomfort, nausea. No vomiting. No major changes in bowel movement frequency. NEUROLOGY: Occasional lightheadedness, dizziness, lower extremity numbness, but no loss of consciousness. PSYCHIATRY: Depression, bouts of crying and poor self-esteem. No hallucinations or delusions. SKIN: Redness, hotness, swelling of the right lower extremity. Otherwise, review of systems noncontributory other than those mentioned in HPI. PAST MEDICAL HISTORY: 1. Type 2 diabetes mellitus. 2. Obesity. 3. Hypertension. 4. Hyperlipidemia. 5. Diabetic neuropathy. 6. Depression. 7. Obstructive sleep apnea. 8. Cardiomyopathy. 9. Coronary artery disease. PAST SURGICAL HISTORY: Hysterectomy, cholecystectomy, ventral hernial repair, partial colectomy, tonsillectomy. OUTPATIENT MEDICATIONS: Include: 1. Motrin. 2. Lisinopril 10 mg daily. 3. Lantus insulin 15 units q.a.m. and 10 units q.p.m. 4. Jardiance 10 mg daily. 5. Gabapentin 300 mg daily. ALLERGIES: OZEMPIC, TRULICITY, CIPROFLOXACIN, KETOROLAC, MORPHINE. FAMILY HISTORY: Significant for heart disease. SOCIAL HISTORY: The patient denies use of tobacco, alcohol or illicit drugs. PHYSICAL EXAMINATION: GENERAL: A female patient who was tearful throughout most of our interview, but does not seem to be in pain. VITAL SIGNS: Blood pressure is 183/83 mmHg, heart rate is 63 beats per minute, respirations 18 per minute, temperature is 36.4 degrees. CONSTITUTIONAL: The patient appears restless and uncomfortable, but not in pain or distress. [facility] [address] [facility] [place] [address] CONSULTATION Name: JEANNIESTONE Correa Room #: 454-P [facility] IN M.R.#: [id number] Admission: 03/08/19 Attend Phys: Khloe Garcia Discharge: 03/09/19 Date of : 52 Report #: [id number] HEENT: Anicteric sclerae. Intact extraocular motions. NECK: Supple without JVD, carotid bruits or lymphadenopathy. I do not appreciate thyromegaly. CHEST: Noted for moderate entry bilaterally with scattered rales and rhonchi. HEART: Regular rate and rhythm without murmurs or gallops. ABDOMEN: Obese, but soft and lax, generalized discomfort to deep palpation. No guarding. EXTREMITIES: Lower extremity exam is noted for hyperemia, swelling, tenderness over the anterior aspect of the right lower extremity. No skin breaks, ulcerations or other deformities over the feet. Pedal pulses are faint. Sensation to light touch is moderately diminished. NEUROLOGIC: Awake, alert and oriented to time, place and person. The remainder of her examination is nonfocal, other than for peripheral sensory deficits as noted above. PSYCHIATRIC: Sad mood and affect, crying intermittently. LABORATORY DATA: Blood glucose on arrival was 348 mg/dL, this morning it was 198 mg/dL. Sodium 132, potassium 3.9, chloride 97, CO2 of 25, anion gap 10, BUN 22, creatinine 1.3, glucose 370. AST 29, amylase 16, lipase 102, total bilirubin 0.6, calcium 9.2, magnesium 1.9, alkaline phosphatase 69. EGFR 41. Lactic acid 1.3. Troponin negative. Total cholesterol 193, triglycerides 205, HDL 33, LDL 119. White blood count 6.1, hemoglobin 13.3, hematocrit 39.1, platelets 171. TSH 4.108. Hemoglobin A1c from 06/2017 was 9.5%. ASSESSMENT AND PLAN: 1. Type 2 diabetes mellitus. The patient has been under poor glycemic control and has actually been dealing with severe hyperglycemia as per her reported blood glucose values for the past several months, if not longer. I will obtain hemoglobin A1c to better assess her overall level of control over the past few months. Unfortunately, a karimi camryn to better glycemic control has the patient's significant noncompliance with medical therapy. As noted above, the patient acknowledged complete abandonment of antidiabetic therapy a few months back. During our interview, she indicated that this went on up until recently and then she had only gone to taking insulin and Jardiance, but I have doubts that that also might not have been consistent. The patient was counseled at length about the necessity of achieving and maintaining adequate glycemic control to prevent both short term and technician terminal and repeater sequelae of severe hyperglycemia. I believe that the patient continues at some level to be resistant to maintaining the necessary antidiabetic therapy in order to achieve these goals. During this hospital stay, the patient was placed on the presumed insulin regimen of Lantus insulin given as 15 units q.a.m. and 10 units q.p.m. and has actually dropped her blood glucose significantly since she received her 10 units last night, which again makes me prone to believe that she might have not been doing this at home to begin with. Given this quick response to a fairly small dose of insulin, I will continue with the same regimen of Lantus insulin 15 units in a.m. and 10 units in p.m. in addition to support with [address] [address] CONSULTATION Name: STONE DENNIS Room #: 454-P [facility] IN M.R.#: [id number] Admission: 03/08/19 Attend Phys: Khloe Garcia Discharge: 03/09/19 Date of : 52 Report #: [id number] Humalog supplemental scale, moderate intensity while we monitor her blood glucose levels a.c. and at bedtime. Given the EGFR of 41, the oral antidiabetic options that are obtainable to the patient are rather limited. She is not a candidate for metformin, she is not a candidate for SGLT2 inhibitors, she is not a candidate for pioglitazone on the basis of cardiomyopathy. This leaves us sulfonylureas which are far better replaced by active insulin therapy and finally a DPP-4 inhibitors with renal dose adjustment. That said, I will add Tradjenta 5 mg daily, which should be allowable on the basis of her kidney function. Further therapeutic adjustments will be made going forward as per her blood glucose values. 2. Hypertension. The patient's level of blood pressure control is inadequate. She has been placed on lisinopril 10 mg daily, but this might have to be revised soon, if her blood pressure outlook remains the same. 3. Hyperlipidemia. Again, the patient had elected to abandon lipid-lowering therapy. I stressed the importance of tight lipid control in view of her diagnoses of type 2 diabetes mellitus and coronary artery disease. Her LDL goal should be below 70 mg/dL and is currently at 119 mg/dL. I will start atorvastatin 20 mg at bedtime and this would be best to continue following her discharge from the hospital. 4. Hypothyroidism. The patient's TSH was just above normal. I will obtain a free T4 and TPO antibodies to examine whether or not active thyroid therapy is warranted in her case. 4. Depression. The patient has clinical depression. This was evident to a high degree during my interview with her today as she was uncontrollably crying when we were trying to dissect through the difficulties she has had recently. I advised the patient strongly to address this issue as I believe it has been a karimi barrier to her care, but again she is resistant to adopting antidepressant therapy based on her bad experience with Lexapro. I explained that there are other options that can be tapped into for this issue. It is going to be particularly important for the patient to adhere to whatever antidepressant therapy is selected so as to maintain a consistent outpatient control of this issue. I have reviewed the patient's laboratory data, clinical care reports, as well as her outpatient care file for over 35 minutes. I appreciate this consultation by Dr. Garcia. <ELECTRONICALLY SIGNED> By: Kandy Fisher MD 03/10/19 0912 1216 1321 Kandy Fisher MD /nt
== END 2019-03-09 16:52 | disposition home or self-care (01) | DRG 872 ==
LOC: ER 14:41 → 4W 17:07 → EROBS 17:07 → 4W 18:18
PROVIDERS: Emergency Medicine; Internal Medicine; ADMIT Hospitalist
DX: A41.9 Sepsis, unspecified organism (principal); I42.9 Cardiomyopathy, unspecified; L03.115 Cellulitis of right lower limb; I10 Essential (primary) hypertension; E11.65 Type 2 diabetes mellitus with hyperglycemia; E66.9 Obesity, unspecified; G47.33 Obstructive sleep apnea (adult) (pediatric); I25.10 Atherosclerotic heart disease of native coronary artery without angina pectoris; E11.40 Type 2 diabetes mellitus with diabetic neuropathy, unspecified; E78.5 Hyperlipidemia, unspecified; E03.9 Hypothyroidism, unspecified; F32.9 Major depressive disorder, single episode, unspecified; E78.00 Pure hypercholesterolemia, unspecified; Z90.710 Acquired absence of both cervix and uterus; Z90.721 Acquired absence of ovaries, unilateral; Z90.49 Acquired absence of other specified parts of digestive tract; I25.2 Old myocardial infarction; Z88.6 Allergy status to analgesic agent; Z88.1 Allergy status to other antibiotic agents; Z88.8 Allergy status to other drugs, medicaments and biological substances; Z68.32 Body mass index [BMI] 32.0-32.9, adult; Z82.49 Family history of ischemic heart disease and other diseases of the circulatory system; Z91.14 Patient's other noncompliance with medication regimen; Z79.899 Other long term (current) drug therapy
CPT/HCPCS: 10040

== ENCOUNTER → 2019-05-11 | Outpatient (CLI) | payer OTHER ==
[~2019-05-11] MED LIST changes: +CIPRO500 M1 PO; +JARDIANCE10 MG PO; +LANTUSSOLASTAR
== END ==
LOC: SJCVCIMAG 09:00
DX: I70.235 Atherosclerosis of native arteries of right leg with ulceration of other part of foot (principal); I70.211 Atherosclerosis of native arteries of extremities with intermittent claudication, right leg; L97.519 Non-pressure chronic ulcer of other part of right foot with unspecified severity; T14.8XXA Other injury of unspecified body region, initial encounter

== ENCOUNTER → 2019-06-16 | Outpatient (CLI) | payer OTHER | LOC: RAD 10:24 → CAT 10:24 | DX: M17.11 Unilateral primary osteoarthritis, right knee (principal) ==

== ENCOUNTER → 2019-09-18 | Outpatient (CLI) | payer OTHER ==
[2019-09-18 13:07] LABS: HEMATOCRIT 38.2 % (37.0-47.0); HEMOGLOBIN 13.2 gm/dL (12.0-15.0); MCH 32.7 pg (26.0-34.0); MCHC 34.6 g/dL (28.0-37.0); MCV 94.6 fL (80.0-100.0); RBC 4.04 mil/uL (4.20-5.00); RDW 12.9 % (10.5-14.5); WBC 4.8 thou/uL (4.0-11.0)
[2019-09-18 13:31] LABS: ALBUMIN 3.5 g/dL (3.4-5.0); ANION GAP 4 mmol/L (7-16); BUN 20 mg/dL (7-18); CALCIUM 8.6 mg/dL (8.5-10.1); CHLORIDE 104 mmol/L (98-107); CHOLESTEROL 198 mg/dL (<200); CO2 30 mmol/L (21-32); GLUCOSE 185 mg/dL (74-106); HDL CHOLESTEROL 35 mg/dL (>40); LDL CHOLESTEROL 113 mg/dL (<100); POTASSIUM 4.5 mmol/L (3.5-5.1); SGOT 25 U/L (15-37); SGPT 30 U/L (30-65); SODIUM 138 mmol/L (136-145); TC:HDL 5.7 Ratio (Not establshd); TOTAL BILIRUBIN 0.7 mg/dL (0.2-1.0); TOTAL PROTEIN 6.9 g/dL (6.4-8.2); TRIGLYCERIDE 250 mg/dL (<150); VLDL 50 mg/dL (<40)
[2019-09-19 06:08] LABS: GLYCOHEMOGLOBIN (HGB A1C) 7.3 % (4.8-5.6)
== END ==
LOC: LAB 12:11
PROVIDERS: ATTEND Nurse Practitioner
DX: E11.65 Type 2 diabetes mellitus with hyperglycemia (principal); I10 Essential (primary) hypertension; Z79.4 Long term (current) use of insulin

== ENCOUNTER 2019-11-22 16:00 | Emergency (ER) | payer OTHER ==
[~2019-11-22] VITALS: Ht 175.3 cm; Wt 104.3 kg
[2019-11-22] MEDS ORDERED: JARDIANCE25 MG PO (17:23)
[2019-11-22] MEDS ORDERED: LOMOTIL TABLET1 EACH PO (17:23)
[2019-11-22] MEDS ORDERED: LANTUS SUBQ (17:24)
[2019-11-22] MEDS ORDERED: LIDODERM1 EACH TOP (18:50)
[2019-11-22 18:54] VITALS: BP 134/78
== END 2019-11-22 18:54 | disposition home or self-care (01) ==
LOC: ER 16:00
DX: S51.812A Laceration without foreign body of left forearm, initial encounter (principal); S00.83XA Contusion of other part of head, initial encounter; S20.212A Contusion of left front wall of thorax, initial encounter; S00.12XA Contusion of left eyelid and periocular area, initial encounter; S00.531A Contusion of lip, initial encounter; S80.812A Abrasion, left lower leg, initial encounter; E11.9 Type 2 diabetes mellitus without complications; E78.00 Pure hypercholesterolemia, unspecified; I25.2 Old myocardial infarction; Z90.711 Acquired absence of uterus with remaining cervical stump; Z90.49 Acquired absence of other specified parts of digestive tract; Z90.89 Acquired absence of other organs; Z79.899 Other long term (current) drug therapy; Z79.4 Long term (current) use of insulin; Z88.1 Allergy status to other antibiotic agents; Z88.6 Allergy status to analgesic agent; Z88.5 Allergy status to narcotic agent; W18.09XA Striking against other object with subsequent fall, initial encounter; Y93.89 Activity, other specified; Y92.89 Other specified places as the place of occurrence of the external cause; Y99.8 Other external cause status

== ENCOUNTER 2019-11-24 09:56 | Emergency (ER) | payer OTHER ==
[~2019-11-24] VITALS: Ht 175.3 cm; Wt 104.3 kg
[~2019-11-24 09:56] MED LIST changes: +JARDIANCE25 MG PO; +LANTUS SUBQ; +LIDODERM1 EACH TOP; +LOMOTIL TABLET1 EACH PO
[2019-11-24] MEDS ORDERED: PREDNISONE10 MG PO (10:47)
[2019-11-24] MEDS ORDERED: TRAMADOL 50 MG50 MG PO ×2 (10:47→10:58)
[2019-11-24 11:34] VITALS: BP 206/64
== END 2019-11-24 11:42 | disposition home or self-care (01) ==
LOC: ER 09:56
DX: M94.0 Chondrocostal junction syndrome [Tietze] (principal); J98.11 Atelectasis; E66.9 Obesity, unspecified; I10 Essential (primary) hypertension; I25.2 Old myocardial infarction; E11.9 Type 2 diabetes mellitus without complications; E78.00 Pure hypercholesterolemia, unspecified; Z88.1 Allergy status to other antibiotic agents; Z88.6 Allergy status to analgesic agent; Z88.5 Allergy status to narcotic agent; Z79.899 Other long term (current) drug therapy; Z79.4 Long term (current) use of insulin; Z90.89 Acquired absence of other organs; Z98.42 Cataract extraction status, left eye; Z98.41 Cataract extraction status, right eye; W18.30XA Fall on same level, unspecified, initial encounter; Y93.89 Activity, other specified; Y92.89 Other specified places as the place of occurrence of the external cause; Y99.9 Unspecified external cause status

== ENCOUNTER 2019-12-03 14:50 | Emergency (ER) | payer OTHER ==
[~2019-12-03] VITALS: Ht 175.3 cm; Wt 103.0 kg
[~2019-12-03 14:50] MED LIST changes: +PREDNISONE10 MG PO; +TRAMADOL 50 MG50 MG PO
[2019-12-03 15:06] LABS: BASOPHILS 0.8 % (0.0-2.0); EOSINOPHILS 0.9 % (0.0-3.0); HEMATOCRIT 40.9 % (37.0-47.0); HEMOGLOBIN 14.5 gm/dL (12.0-15.0); LYMPHOCYTES 16.1 % (24.0-44.0); MCH 33.3 pg (26.0-34.0); MCHC 35.5 g/dL (28.0-37.0); MONOCYTES 6.9 % (1.0-8.0); PLATELET COUNT 198 thou/uL (150-400); POLYS 75.3 % (36.0-66.0); RBC 4.35 mil/uL (4.20-5.00); WBC 7.9 thou/uL (4.0-11.0)
[2019-12-03 15:16] LABS: ANION GAP 11 mmol/L (7-16); BUN 21 mg/dL (7-18); CALCIUM 8.6 mg/dL (8.5-10.1); CHLORIDE 103 mmol/L (98-107); CO2 23 mmol/L (21-32); CREATININE 1.1 mg/dL (0.6-1.0); GLUCOSE 335 mg/dL (74-106); POTASSIUM 4.4 mmol/L (3.5-5.1); SODIUM 137 mmol/L (136-145)
[2019-12-03 15:26] LABS: ALBUMIN 3.1 g/dL (3.4-5.0); SGOT 25 U/L (15-37); SGPT 34 U/L (30-65); TOTAL BILIRUBIN 0.8 mg/dL (0.2-1.0); TOTAL PROTEIN 6.8 g/dL (6.4-8.2); TROPONIN-I <0.06 ng/mL (<0.06)
[2019-12-03] MEDS ORDERED: ZOFRAN ODT4 MG PO (18:04)
[2019-12-03 18:07] VITALS: BP 138/50
--- NOTE | 2019-12-05 16:00 | EKG ---
[facility] [place] [address] ELECTROCARDIOGRAM REPORT Name: STONE DENNIS I Room #: [facility]#: [id number] Admission: 12/03/19 Attend Phys: Discharge: 12/03/19 Date of : 52 Report #: [id number] THIS REPORT FOR: cc: Jenny Hawkins Beth RNP Couchonnal, Luis F. MD ~ THIS REPORT FOR: //name// [facility] ED Test Date: 2019-12-03 Test Time: 14:50:55 Pat Name: STONE DENNIS Department: Room: Gender: F Extermination Supervisor: : 1950 Requested By: Sarah Schulte Order Number: [id number] MD: Willian Jett Measurements Intervals [place] Rate: 73 P: 26 [place]: 158 QRS: -39 QRSD: 122 T: 63 QT: 411 QTc: 453 Interpretive Statements Sinus rhythm Nonspecific IVCD with LAD Compared to ECG 03/08/2019 14:52:18 Intraventricular conduction delay now present Electronically Signed On 12-05-2019 16:00:50 CDT by Willian Jett [email or web address] <ELECTRONICALLY SIGNED> By: Willian Jett MD 12/05/191599 49 49 Willian Jett MD /EPI
== END 2019-12-03 18:07 | disposition home or self-care (01) ==
LOC: ER 14:50
PROVIDERS: Emergency Medicine
DX: R07.9 Chest pain, unspecified (principal); M54.5 Low back pain; R42 Dizziness and giddiness; R11.0 Nausea; E11.9 Type 2 diabetes mellitus without complications; E78.00 Pure hypercholesterolemia, unspecified; I10 Essential (primary) hypertension; I25.2 Old myocardial infarction; Z88.8 Allergy status to other drugs, medicaments and biological substances; Z90.711 Acquired absence of uterus with remaining cervical stump; Z90.49 Acquired absence of other specified parts of digestive tract; Z90.89 Acquired absence of other organs; Z79.4 Long term (current) use of insulin; Z79.899 Other long term (current) drug therapy; Z88.1 Allergy status to other antibiotic agents; Z88.6 Allergy status to analgesic agent; Z88.5 Allergy status to narcotic agent

== ENCOUNTER → 2020-01-19 | Outpatient (CLI) | payer OTHER | LOC: LAB 10:59 | PROVIDERS: ATTEND Nurse Practitioner | DX: Z20.828 Contact with and (suspected) exposure to other viral communicable diseases (principal) ==

== ENCOUNTER → 2020-03-24 | Emergency (ER) | payer OTHER ==
[~2020-03-24] VITALS: Ht 172.7 cm; Wt 104.3 kg
[2020-03-24 17:39] LABS: URINE BILIRUBIN NEGATIVE (Negative); URINE BLOOD TRACE (Negative); URINE CLARITY SL CLOUDY; URINE COLOR YELLOW; URINE GLUCOSE-RANDOM* 3+ (Negative); URINE KETONES NEGATIVE (Negative); URINE LEUKOCYTES-REFLEX TRACE (Negative); URINE NITRITE-REFLEX NEGATIVE (Negative); URINE PROTEIN (DIPSTICK) 2+ (Negative); URINE UROBILINOGEN 0.2 E.U./dl (0.2-1.0)
[2020-03-24 17:56] LABS: BACTERIA-REFLEX >30 Many /HPF (None Seen); CASTS None Seen /LPF (None Seen); CRYSTALS None Seen /LPF (None Seen); SQUAMOUS 4-10 Moderate /LPF (0-3); URINE RBC 3-10 Few /HPF (0-2)
[2020-03-24 19:16] VITALS: BP 173/65
== END ==
LOC: ER 17:02
PROVIDERS: Emergency Medicine
DX: R10.9 Unspecified abdominal pain (principal); Z53.21 Procedure and treatment not carried out due to patient leaving prior to being seen by health care provider

== ENCOUNTER → 2020-07-01 | Outpatient (CLI) | payer OTHER ==
[2020-07-01 11:47] LABS: EOSINOPHILS 2.6 % (0.0-3.0); HEMATOCRIT 38.6 % (37.0-47.0); HEMOGLOBIN 13.3 gm/dL (12.0-15.0); LYMPHOCYTES 21.1 % (24.0-44.0); MCH 32.5 pg (26.0-34.0); MCHC 34.4 g/dL (28.0-37.0); MCV 94.6 fL (80.0-100.0); MONOCYTES 8.4 % (1.0-8.0); PLATELET COUNT 183 thou/uL (150-400); POLYS 66.9 % (36.0-66.0); RBC 4.08 mil/uL (4.20-5.00); RDW 13.3 % (10.5-14.5); WBC 4.4 thou/uL (4.0-11.0)
[2020-07-01 12:08] LABS: ALBUMIN 3.2 g/dL (3.4-5.0); ANION GAP 8 mmol/L (7-16); BUN 27 mg/dL (7-18); CALCIUM 9.1 mg/dL (8.5-10.1); CHLORIDE 102 mmol/L (98-107); CHOLESTEROL 206 mg/dL (<200); CO2 25 mmol/L (21-32); CREATININE 1.3 mg/dL (0.6-1.0); GLUCOSE 337 mg/dL (74-106); HDL CHOLESTEROL 37 mg/dL (>40); LDL CHOLESTEROL 110 mg/dL (<100); POTASSIUM 4.6 mmol/L (3.5-5.1); SGOT 23 U/L (15-37); SGPT 27 U/L (30-65); SODIUM 135 mmol/L (136-145); TC:HDL 5.6 Ratio (Not establshd); TOTAL BILIRUBIN 0.6 mg/dL (0.2-1.0); TOTAL PROTEIN 7.2 g/dL (6.4-8.2); TRIGLYCERIDE 296 mg/dL (<150); VLDL 59 mg/dL (<40)
[2020-07-02 00:06] LABS: GLYCOHEMOGLOBIN (HGB A1C) 8.9 % (4.8-5.6)
== END ==
LOC: LAB 10:29
PROVIDERS: ATTEND Nurse Practitioner
DX: E11.65 Type 2 diabetes mellitus with hyperglycemia (principal); Z79.4 Long term (current) use of insulin

== ENCOUNTER 2020-11-08 20:14 | Emergency (ER) | payer OTHER ==
[~2020-11-08] VITALS: Ht 172.7 cm; Wt 104.3 kg
[2020-11-08 20:16] VITALS: BP 148/64
== END 2020-11-08 21:14 | disposition home or self-care (01) ==
LOC: ER 20:14
DX: T23.202A Burn of second degree of left hand, unspecified site, initial encounter (principal); E11.9 Type 2 diabetes mellitus without complications; E78.00 Pure hypercholesterolemia, unspecified; I10 Essential (primary) hypertension; Z90.89 Acquired absence of other organs; Z98.890 Other specified postprocedural states; Z90.49 Acquired absence of other specified parts of digestive tract; Z90.710 Acquired absence of both cervix and uterus; Z88.1 Allergy status to other antibiotic agents; Z88.6 Allergy status to analgesic agent; Z88.5 Allergy status to narcotic agent; X19.XXXA Contact with other heat and hot substances, initial encounter; Y93.89 Activity, other specified; Y92.89 Other specified places as the place of occurrence of the external cause; Y99.8 Other external cause status

== ENCOUNTER → 2021-03-26 | Outpatient (CLI) | payer OTHER ==
[2021-03-26 11:15] LABS: ABSOLUTE NEUTROPHILS 3.1 thou/uL (1.4-8.2); BASOPHILS 0.9 % (0.0-2.0); EOSINOPHILS 1.9 % (0.0-3.0); HEMATOCRIT 38.2 % (37.0-47.0); HEMOGLOBIN 12.9 gm/dL (12.0-15.0); LYMPHOCYTES 25.3 % (24.0-44.0); MCH 32.2 pg (26.0-34.0); MCHC 33.8 g/dL (28.0-37.0); MCV 95.3 fL (80.0-100.0); MONOCYTES 8.6 % (1.0-8.0); PLATELET COUNT 170 thou/uL (150-400); POLYS 63.3 % (36.0-66.0); RBC 4.01 mil/uL (4.20-5.00); RDW 13.2 % (10.5-14.5); WBC 4.9 thou/uL (4.0-11.0)
[2021-03-26 11:40] LABS: URINE BILIRUBIN NEGATIVE (Negative); URINE BLOOD 1+ (Negative); URINE COLOR YELLOW; URINE GLUCOSE-RANDOM* 3+ (Negative); URINE KETONES NEGATIVE (Negative); URINE LEUKOCYTES-REFLEX NEGATIVE (Negative); URINE NITRITE-REFLEX NEGATIVE (Negative); URINE PROTEIN (DIPSTICK) 2+ (Negative); URINE SPECIFIC GRAVITY >= 1.030 (1.005-1.035); URINE UROBILINOGEN 0.2 E.U./dl (0.2-1.0)
[2021-03-26 11:42] LABS: URINE CLARITY HAZY
[2021-03-26 11:44] LABS: ALBUMIN 3.2 g/dL (3.4-5.0); ANION GAP 7 mmol/L (7-16); BUN 21 mg/dL (7-18); CALCIUM 8.6 mg/dL (8.5-10.1); CHLORIDE 103 mmol/L (98-107); CHOLESTEROL 206 mg/dL (<200); CO2 27 mmol/L (21-32); GLUCOSE 274 mg/dL (74-106); HDL CHOLESTEROL 42 mg/dL (>40); LDL CHOLESTEROL 134 mg/dL (<100); POTASSIUM 4.3 mmol/L (3.5-5.1); SGOT 20 U/L (15-37); SGPT 27 U/L (30-65); SODIUM 137 mmol/L (136-145); TC:HDL 4.9 Ratio (Not establshd); TOTAL BILIRUBIN 0.5 mg/dL (0.2-1.0); TOTAL PROTEIN 6.8 g/dL (6.4-8.2); TRIGLYCERIDE 150 mg/dL (<150); VLDL 30 mg/dL (<40)
[2021-03-26 12:09] LABS: CASTS None Seen /LPF (None Seen); SQUAMOUS 4-10 Moderate /LPF (0-3)
[2021-03-26 12:10] LABS: URINE WBC-REFLEX 6-15 Few /HPF (0-5)
[2021-03-26 12:11] LABS: BACTERIA-REFLEX >30 Many /HPF (None Seen); CALCIUM OXALATE 0-3 Few /LPF (None Seen); URINE RBC 1-2 Rare /HPF (NONE SEEN)
[2021-03-27 03:06] LABS: GLYCOHEMOGLOBIN (HGB A1C) 9.1 % (4.8-5.6)
== END ==
LOC: LAB 09:50
PROVIDERS: ATTEND Nurse Practitioner
DX: E11.42 Type 2 diabetes mellitus with diabetic polyneuropathy (principal)

== ENCOUNTER → 2021-03-31 | Outpatient (CLI) | payer OTHER | LOC: HYPER 08:14 | PROVIDERS: ATTEND Emergency Medicine | DX: E11.621 Type 2 diabetes mellitus with foot ulcer (principal); L97.512 Non-pressure chronic ulcer of other part of right foot with fat layer exposed; L84 Corns and callosities; E11.43 Type 2 diabetes mellitus with diabetic autonomic (poly)neuropathy; E66.01 Morbid (severe) obesity due to excess calories; E78.5 Hyperlipidemia, unspecified; G47.33 Obstructive sleep apnea (adult) (pediatric); I42.9 Cardiomyopathy, unspecified; I25.10 Atherosclerotic heart disease of native coronary artery without angina pectoris; F32.9 Major depressive disorder, single episode, unspecified; Z79.4 Long term (current) use of insulin; Z90.710 Acquired absence of both cervix and uterus; Z90.49 Acquired absence of other specified parts of digestive tract; Z68.34 Body mass index [BMI] 34.0-34.9, adult ==

== ENCOUNTER → 2021-04-08 | Outpatient (CLI) | payer OTHER | LOC: HYPER 13:52 | PROVIDERS: ATTEND Emergency Medicine | DX: E11.621 Type 2 diabetes mellitus with foot ulcer (principal); L97.512 Non-pressure chronic ulcer of other part of right foot with fat layer exposed; E11.43 Type 2 diabetes mellitus with diabetic autonomic (poly)neuropathy; L84 Corns and callosities; E78.5 Hyperlipidemia, unspecified; I25.10 Atherosclerotic heart disease of native coronary artery without angina pectoris; G47.33 Obstructive sleep apnea (adult) (pediatric); E66.9 Obesity, unspecified; F32.9 Major depressive disorder, single episode, unspecified; Z79.4 Long term (current) use of insulin; Z79.899 Other long term (current) drug therapy ==